=== PATIENT | female | born 1935 | race Caucasian/White ===

== ENCOUNTER 2017-03-28 06:19 | Observation (INO) | payer MEDICARE, BC ==
[2017-03-28 07:26] LABS: ALT (SGPT) 18 U/L (8-55); AST (SGOT) 14 U/L (5-34); Alkaline Phosphatase 78 U/L (40-150); Anion Gap 14 mmol/L (10-20); BUN (Urea Nitrogen) 10 mg/dL (9.8-20.1); Bilirubin, Total 0.6 mg/dL (0.2-1.2); CK (CPK) 66 U/L (29-168); Calc. Creatinine Clearance 0 mL/min (70-130); Carbon Dioxide 25 mmol/L (23-31); Chloride 107 mmol/L (98-107); Estimated GFR-MDRD 79; Globulin 3.3 g/dL (2.4-3.5); Protein, Total 6.9 g/dL (6.0-8.3)
[2017-03-28 07:28] LABS: Troponin I Less than 0.010 ng/mL (< 0.028)
--- NOTE | 2017-03-28 08:16 | RAD ---
SINGLE VIEW OF CHEST: Date: 03/28/17 COMPARISON: 05/01/16. HISTORY: Fall from 3-ft, landing on surface. Syncope. FINDINGS: Single view of the chest shows a normal sized cardiomediastinal silhouette. There is no evidence of consolidation, mass, or pleural effusion. The bones are unremarkable. IMPRESSION: No evidence of acute cardiopulmonary disease. POS: [facility]
--- NOTE | 2017-03-28 08:33 | CT ---
CT OF THE BRAIN WITHOUT CONTRAST: Date: 03/28/17 COMPARISON: 12/05/13. HISTORY: Fall from 3-ft. Syncope. TECHNIQUE: Multiple contiguous axial images were obtained in a CT of the brain without contrast. FINDINGS: There is no evidence of intracranial hemorrhage or extra-axial fluid collection. There is stable pro minence of the lateral ventricles. The calvarium and overlying soft tissues are unremarkable. The visualized paranasal sinuses and mast oid air cells are well aerated. IMPRESSION: 1. No evidence of acute intracranial abnormality. 2. Stable prominence of the lateral ventricles. This could be secondary to cerebral atrophy or norm al pressure hydrocephalus. POS: [facility]
[2017-03-28 08:36] LABS: Prothrombin Time 13.7 SEC (12.0-14.7)
[2017-03-28 08:37] LABS: PTT 28.2 SEC (22.9-36.1)
[2017-03-28 08:43] LABS: Band 6 % (5-11); Mean Platelet Volume 7.1 fL (7.4-10.4); Neutrophil 88 % (42-75); Red Blood Cell (RBC) Count 4.09 mill/uL (4.20-5.40); White Blood Cell (WBC) Count 21.4 thou/uL (4.8-10.8)
--- NOTE | 2017-03-28 08:56 | CT ---
CT OF THE CERVICAL SPINE WITHOUT CONTRAST: Date: 03/28/17 COMPARISON: None. HISTORY: Syncope. Fall from 3-ft. Head trauma and neck pain. TECHNIQUE: Multiple contiguous axial images were obtained in a CT of the cervical spine without contrast. Sagit stew and coronal reformats were performed. FINDINGS: The vertebral bodies and intervertebral discs demonstrate normal height and alignment without fractu re or subluxation. Mild degenerative change are seen. No prevertebral soft tissue swelling is presen t. The posterior facets are well aligned. Normal alignment of the skull base with the cervical spine is seen. IMPRESSION: Degenerative changes of the cervical spine without acute osseous abnormality. POS: [facility]
[2017-03-28] MEDS ORDERED: Sodium Chloride 0.9% 100 ML ONE ×2 (09:19→09:20)
[2017-03-28] MEDS ORDERED: cefTRIAXone\\ROCEPHIN 1 GM VIAL ONE (09:19)
[2017-03-28 09:22] LABS: Lactic Acid - Sepsis 1.6 mmol/L (0.5-2.2)
[2017-03-28 10:18] LABS: Bilirubin Negative (Negative); Blood, Urine Negative (Negative); Glucose, Urine (Dipstick) Negative (Negative); Ketone, Urine Trace mg/dL (Negative); Nitrite Negative (Negative); Protein, Urine (Dipstick) Trace mg/dL (Neg-Trace)
[2017-03-28 11:05] VITALS: BMI 22.6
--- NOTE | 2017-03-28 15:34 | HP ---
DATE OF ADMISSION: 03/28/2017 CHIEF COMPLAINT: Status post fall and possible near syncope versus syncope and head trauma, elevate d white cell count. HISTORY OF PRESENT ILLNESS: The patient is an 81-year-old female, a resident of [facility] from [place] where this morning, the patient was walking with her walker and apparently fell and the event was not witnessed directly, but apparently there was some staff member who was close by and she checked on her. She did not appear that consciousness was lost. At the time when she ch ecked in her, but apparently she fell and she struck her head, so in this situation, the patient was transferred to the emergency room for further evaluation. While in the emergency room in [facility], she was found to have elevated white count at 21,000 and her rectal temperature was elevated at 100.4 and decision was made about hospitalization for further management of her problem. The ray ramsey has significant very advanced dementia and she is not able to communicate with us in a meaning ful way, although she is able to follow my simple commands. PAST MEDICAL HISTORY: Positive for: 1. Dementia. 2. Hyperlipidemia. 3. Seasonal allergies. PAST SURGICAL HISTORY: 1. Right arm surgery. 2. Esophageal stricture status post dilatation x3. ALLERGIES: None. CURRENT MEDICATIONS: Aspirin 325 mg once a day, omeprazole 20 mg once a day, Zyrtec 10 mg once a da y, ipratropium bromide 0.2 mg per mL 2 times per day and 1 spray to each nostril, Lipitor 10 mg at b edtime, Aricept 10 mg once a day, Namenda XR 28 mg once a day, Singulair 10 mg at bedtime, risperido ne 0.5 mg at bedtime, mirtazapine 15 mg at bedtime. PHYSICAL EXAMINATION: HEAD: Normocephalic. I do not see any area which is post-trauma. I do not see any redness or swel ling on her scalp. EYES: Pupils are very narrow. This is most likely secondary to her antipsychotic medications use. Conjunctivae are pinkish. Sclerae nonicteric. MOUTH: Oral mucosa is moist. Her tongue is covered with some whitish discharge. NECK: Supple, no lymphadenopathy. LUNGS: Clear. HEART: S1, S2 normal. No S3, no S4, no murmur. ABDOMEN: Soft, nontender, nondistended, bowel sounds are present, no organomegaly. EXTREMITIES: No clubbing, cyanosis or edema. Pulses palpable on both tibialis posterior and dorsal is pedis arteries, similar bilaterally on both lower extremities. NEUROLOGIC: She follows my simple commands. She is able to move her four extremities. She does no t have any focal deficits. LABORATORY DATA AND X-RAY FINDINGS: Showed white count of 21.4, hemoglobin of 13.0, hematocrit 40, platelet count 281, 88% of neutrophils, PT of 13.7, INR 1.08, PTT 28.2. Chemistry panel within norm al limits. Lactic acid 1.6. Urinalysis, trace of ketones and 4.0; urobilinogen otherwise normal. Chest x-ray did not reveal any acute cardiopulmonary disease. This was personally reviewed by me. The CT of the brain was personally reviewed by me. It showed some enlarged lateral ventricles and t here was no any other evidence of acute intracranial abnormality. Also, she has a cervical CT, whic h showed degenerative changes without acute osseous abnormalities. EKG showed normal conduction pos sible junctional rhythm, short AL and normal T waves, normal axis, no deviation. IMPRESSION: 1. Status post fall. We do not know whether there was some very brief syncope, this was near synco pe, but the patient presented to the emergency room showed some elevated temperature rectally at 100 .4 and elevated white count of 21.4. We do not see any obvious source of infection at this point, w e know that she had lab work done in February and there was not any comments about elevated white c ount on her CBC. At this point, the patient is going to be admitted for observation and we will marie at her as possible infection of unknown source. 2. Advanced Alzheimer's dementia. 3. Hyperlipidemia. 4. History of esophageal stricture, status post dilatation x3. 5. History of seasonal allergies. PLAN: To admit her for observation. Condition is fair. Activity: Bed rest with a sitter, IV Hep- Lock, pureed low salt diet. Continue Rocephin. She received 1 dose, 1 gram of Rocephin in the [facility] room at 09:29. I will continue 1 g every 24 hours, IV piggyback of Rocephin. Also, she had b lood cultures and urine cultures done which should have some preliminary report by tomorrow. We randy l check her CBC and chemistry every morning. We will do echocardiogram and Doppler of the lower ext remities to rule out any DVTs, although there is no swelling which would indicate that is the case. Will continue her home meds. We will have her on 40 mg of Lovenox for DVT prophylaxis.
[2017-03-28] MEDS ORDERED: Ipratropium Bromide 0.03% Nasal Inhaler 30 ml Bottle EA NARE SCH ×2 (18:30→21:00)
--- NOTE | 2017-03-28 19:02 | ULT ---
ULTRASOUND WITH DOPPLER DUPLEX VENOUS LOWER EXTREMITIES BILATERAL: HISTORY: 81-year-old female with bilateral lower extremity swelling. TECHNIQUE: Color flow Doppler, spectral waveform analysis of pulsed Doppler, and friedman-scale imaging with compre ssion and augmentation, were used to evaluate the bilateral common femoral, femoral, popliteal, post erior tibial, and superficial femoral, veins; and the proximal portions of the profunda femoral and greater saphenous, veins. FINDINGS: There is normal compressibility, demonstration of blood flow by color Doppler and pulsed Doppler, an d response to augmentation, in all interrogated veins. There is mild soft tissue edema in the bilate ral lower extremities. IMPRESSION: 1. No deep vein thrombosis in the bilateral lower extremities. 2. Edema in the soft tissues of the bilateral lower extremities. mily POS: [facility]
[2017-03-28] MEDS: Ipratropium Bromide 0.03% Nasal Inhaler 30 ml Bottle EA NARE SCH ×2 (20:05→20:24)
[2017-03-28] MEDS ORDERED: Montelukast Sodium 10 mg Tablet PO SCH (21:00)
[2017-03-28] MEDS ORDERED: Mirtazapine 15 MG TAB PO SCH (21:00)
[2017-03-28] MEDS ORDERED: Non-Formulary Item 1 EACH (Risperidone [Risperdal] 0.5 MG) PO SCH (21:00)
[2017-03-28] MEDS ORDERED: FLU VACC TS2017-18 (>65YR) 0.5 ML SYRINGE IM ONE (21:00)
[2017-03-28] MEDS ORDERED: Donepezil HCl 10 MG TAB PO SCH (21:00)
[2017-03-28] MEDS ORDERED: Aspirin 325 MG TAB PO SCH (21:00)
[2017-03-28] MEDS ORDERED: Atorvastatin Calcium 10 MG TAB PO SCH (21:00)
[2017-03-28] MEDS ORDERED: risperiDONE 0.25 MG TAB PO SCH (21:00)
[2017-03-28] MEDS ORDERED: Non-Formulary Item 1 EACH (Memantine Hcl [Namenda Xr] 28 MG) PO SCH (21:00)
--- NOTE | 2017-03-28 23:23 | ADD-HP ---
ADDENDUM: SOCIAL HISTORY: The patient does not drink alcohol. She does not use any illicit drugs. She does not smoke. She has no history of cigarette smoking. FAMILY HISTORY: Father is unknown. Mother was in 94 when she passed with multiple medical problems , but unknown. REVIEW OF SYSTEMS: Constitutional: Negative for fever and chills. Eyes: Negative for eye pain an d eye discharge. ENT: Negative for nasal congestion and epistaxis. Cardiovascular: Negative for chest pain and palpitations. Respiratory: Negative for shortness of breath and cough. Gastrointes tinal: Negative for nausea and vomiting. Genitourinary: Negative for hematuria and dysuria. Neur ologic: Negative for headache and dizziness. Dermatologic: Negative for any erythema or rash. Ps ychiatric: Negative for suicidal or homicidal ideation. The whole review of systems she has done w ith her spouse. Mr. Felipe Amanda is power of car repairer for Ms. Amanda, and primary care physician is Dr. Sigrid Lee.
[2017-03-29 05:04] LABS: Anion Gap 10 mmol/L (10-20); BUN (Urea Nitrogen) 12 mg/dL (9.8-20.1); Calc. Creatinine Clearance 65 mL/min (70-130); Calcium 8.2 mg/dL (7.8-10.44); Carbon Dioxide 23 mmol/L (23-31); Chloride 108 mmol/L (98-107); Estimated GFR-MDRD Greater than 90
[2017-03-29 05:07] LABS: #Eosinphils 0.2 thou/uL (0.0-0.7); #Lymphocytes 2.3 thou/uL (1.20-3.40); #Monocytes 0.6 thou/uL (0.11-0.59); #Neutrophils 7.3 thou/uL (1.40-6.50); %Basophils 0.4 % (0.0-1.0); %Eosinophils 2.1 % (0.0-10.0); %Lymphocytes 21.6 % (21.0-51.0); %Monocytes 5.8 % (0.0-10.0); Hematocrit 35.6 % (36.0-47.0); Mean Platelet Volume 7.8 fL (7.4-10.4); Red Blood Cell (RBC) Count 3.54 mill/uL (4.20-5.40); White Blood Cell (WBC) Count 10.4 thou/uL (4.8-10.8)
[2017-03-29] MEDS ORDERED: Ipratropium Bromide 0.03% Nasal Inhaler 30 ml Bottle EA NARE SCH (09:00)
[2017-03-29] MEDS ORDERED: Non-Formulary Item 1 EACH (Omeprazole [Omeprazole] 20 MG) PO SCH (09:00)
[2017-03-29] MEDS ORDERED: Cetirizine HCl 10 MG TAB PO SCH (09:00)
[2017-03-29] MEDS ORDERED: Loratadine 10 MG TAB PO SCH (09:00)
[2017-03-29] MEDS: Enoxaparin Sodium 40 MG/0.4 ML SYRINGE SC SCH ×2 (09:07→09:10)
[2017-03-29] MEDS: cefTRIAXone\\ROCEPHIN 1 GM in Sodium Chloride 0.9% 100 ML IVPB SCH ×2 (09:07→11:10)
[2017-03-29 11:41] VITALS: BP 155/62; TEMP 97.5
[2017-03-29] MEDS ORDERED: cefTRIAXone\\ROCEPHIN 1 GM in Sodium Chloride 0.9% 100 ML IVPB SCH (12:15)
--- NOTE | 2017-03-29 17:32 | DIS ---
DATE OF ADMISSION: 03/28/2017 DATE OF DISCHARGE: 03/29/2017 DISCHARGE DIAGNOSES: 1. Status post fall, likely mechanical. 2. Skull contusion. 3. Leukocytosis without infectious etiology identified. 4. Advanced dementia, likely Alzheimer's type. CONSULTATIONS: None. PERTINENT LABORATORY DATA AND X-RAY FINDINGS: Complete metabolic profile within normal limits. CRP 3.3, lactic acid level 1.6. CBC showed a white blood cell count ranging between 10.4-21.4, hemoglo bin ranged between 11.7-13. Blood cultures x2 dated 03/28/2017 showed no growth to date. CT of the brain without contrast dated 03/28/2017 showed no acute intracranial process. Generalized cerebral atrophy noted with prominent ventricles. CT of the cervical spine dated 03/28/2017 showed degenera tive changes without acute process. Portable chest x-ray dated 03/28/2017 showed no acute cardiopul monary process. Bilateral lower extremity venous Doppler study dated 03/28/2017 showed no evidence for DVT. 2D transthoracic echocardiogram pending at the time of this dictation. HOSPITAL COURSE: Patient was observed after initially presenting status post mechanical fall with h ead contusion. The patient underwent general evaluation including multiple imaging modalities as st ated previously, all negative. The patient was noted with mild contusion on the occipital region wi thout evidence for open laceration. The patient was noted on metabolic screening with leukocytosis and initial concern for possible infectious process. The patient received IV Rocephin, pending cult ure results. Blood cultures x2 were negative as stated previously and patient's leukocytosis had re solved prior to discharge. Overall, the patient remained clinically stable throughout the remainder of the hospital course, tolerating regular oral intake, ambulating with rolling walker and overall remaining clinically stable. The patient is ready for discharge on 03/29/2017. DISCHARGE MEDICATIONS: 1. Aspirin 325 mg 1 tab p.o. at bedtime. 2. Lipitor 10 mg p.o. at bedtime. 3. Zyrtec 10 mg p.o. daily. 4. Aricept 10 mg p.o. at bedtime. 5. Ipratropium bromide 1 spray in each naris daily. 6. Namenda XR 28 mg p.o. at bedtime. 7. Mirtazapine 15 mg p.o. at bedtime. 8. Singulair 10 mg p.o. at bedtime. 9. Omeprazole 20 mg p.o. daily. 10. Risperdal 0.5 mg p.o. at bedtime. FOLLOWUP: Patient will follow up with her primary care provider, Dr. Sigrid Lee, within 7 days. CONDITION ON DISCHARGE: Stable. ACTIVITY: Ad flaco. Rolling walker for ambulation. DIET: Regular. CODE STATUS: DO NOT RESUSCITATE. DISPOSITION: Discharge to [facility], 03/29/2017.
== END 2017-03-29 12:45 ==
LOC: SCSER 06:19 → 2SE 10:54 → INTOOBSV 10:54
PROVIDERS: ADMIT Internal Medicine; ATTEND Internal Medicine
DX: S00.83XA Contusion of other part of head, initial encounter (principal); D72.829 Elevated white blood cell count, unspecified; E78.5 Hyperlipidemia, unspecified; J30.2 Other seasonal allergic rhinitis; G30.9 Alzheimer's disease, unspecified; F02.80 Dementia in other diseases classified elsewhere, unspecified severity, without behavioral disturbance, psychotic disturbance, mood disturbance, and anxiety; R60.0 Localized edema; M54.2 Cervicalgia; W19.XXXA Unspecified fall, initial encounter; Y93.01 Activity, walking, marching and hiking; Z66 Do not resuscitate; Z79.82 Long term (current) use of aspirin; Z79.899 Other long term (current) drug therapy; Z88.0 Allergy status to penicillin; Z98.890 Other specified postprocedural states
CPT/HCPCS: 51701; 70450; 71010; 72125; 80048; 80053; 81003; 82550; 82553; 83605; 84484; 85025 ×2; 85610; 85730; 86140; 87040; 87086; 93005; 93306; 93970; 96365; 99285; G0378; 36415; A4216; A4353; J0696; J1650; J7050

== ENCOUNTER 2017-07-21 15:45 | Day surgery (SDC) | payer MEDICARE, BC ==
[~2017-07-21 15:45] MED LIST: Lidocaine 1% PF 5 ML VIAL ONE; Ondansetron HCl/PF 4 MG/2 ML Vial ONE; Propofol 200 MG/20 ML VIAL ONE; Succinylcholine Chloride 20 MG/ML 10 ml SYRINGE FS ONE
[2017-07-21] MEDS ORDERED: Diprivan 0 ML ONE (17:42)
[2017-07-21] MEDS ORDERED: Fentanyl 100 MCG/2 ML VIAL ONE (17:51)
--- NOTE | 2017-07-21 20:44 | OP ---
PREOPERATIVE DIAGNOSIS: Acute dysphagia. PROCEDURE: After informed consent was obtained, the patient was placed in the left lateral decubitus position. Anesthesia was administered per the Anesthesia Department. Forward-viewing endoscope was inserted into the esophagus under direct visualization with ease and passed to the GE junction. The re are esophageal foreign body was noted, looked to be as a meat impaction. It was snared and migdalia t out of the mouth. The scope was reinserted and showed an esophageal stricture at the GE junction. A hiatal hernia was noted as well. The remainder of the stomach and duodenum were normal. A 54-Edward nch Paredes dilator was passed with some moderate resistance. Reinsertion of the endoscope showed so me post-dilatation bleeding. ASSESSMENT: 1. Esophageal foreign body -- status post extraction. 2. Esophageal stricture -- status post dilatation. 3. Otherwise normal esophagogastroduodenoscopy. RECOMMENDATIONS: Pureed diet.
--- NOTE | 2017-07-21 20:55 | CON ---
DATE OF CONSULTATION: 07/21/2017 HISTORY OF PRESENT ILLNESS: Patient is an 81-year-old female who was fine up until 11:00 t shona when she developed acute swallowing problems. She has been spitting up saliva ever since. She has a history of esophageal stricture and last underwent an EGD and dilatation on 01/21/2017. This s howed esophageal stricture and was dilated with a 54-Welsh Paredes dilator. At that time, she was p laced on a pureed diet; however, patient occasionally takes something off other patients' trays. PAST MEDICAL HISTORY: Includes senile dementia, anxiety, arthritis, hypercholesterolemia. PAST SURGICAL HISTORY: Includes cataracts and colonoscopy. ALLERGIES: No known allergies. SOCIAL HISTORY: She is a [facility] resident. FAMILY HISTORY: Negative for GI or liver disease. REVIEW OF SYSTEMS: Unobtainable. MEDICATIONS: Omeprazole 20 mg p.o. q. day, aspirin 325 mg 1 p.o. q. day, Lipitor 10 mg p.o. q. day, Aricept 10 mg p.o. q. day, Namenda 28 mg p.o. q. day, Seroquel 50 mg p.o. q. day. PHYSICAL EXAMINATION: GENERAL: Shows an elderly demented female in no acute distress. VITAL SIGNS: Stable. She is afebrile. HEENT: Unremarkable. NECK: Supple. CHEST: Clear. CARDIOVASCULAR: Regular rate and rhythm. ABDOMEN: Soft, nontender, without organomegaly or masses. Bowel sounds are present and normoactive. RECTAL: Deferred. EXTREMITIES: Normal. NEUROLOGIC: Nonfocal. ASSESSMENT: 1. Acute esophageal foreign body obstruction. 2. History of esophageal stricture. 3. Dementia. RECOMMENDATIONS: Urgent EGD.
== END 2017-07-21 19:35 | disposition home or self-care (01) ==
LOC: ERS 15:45 → SDC 17:33
PROVIDERS: ATTEND Internal Medicine Gastroenterology
PROC: 0DC58ZZ Extirpation of Matter from Esophagus, Via Natural or Artificial Opening Endoscopic (ICD-10-PCS; principal; 2017-07-21)
PROC: 0D758ZZ Dilation of Esophagus, Via Natural or Artificial Opening Endoscopic (ICD-10-PCS; 2017-07-21)
DX: T18.128A Food in esophagus causing other injury, initial encounter (principal); K22.2 Esophageal obstruction; F03.90 Unspecified dementia, unspecified severity, without behavioral disturbance, psychotic disturbance, mood disturbance, and anxiety; F41.9 Anxiety disorder, unspecified; M19.90 Unspecified osteoarthritis, unspecified site; Z88.0 Allergy status to penicillin; Z98.890 Other specified postprocedural states
CPT/HCPCS: 99285; J2001; J2405; J2704; J3010

== ENCOUNTER 2017-10-14 13:18 | Outpatient (CLI) | payer MEDICARE, BC ==
--- NOTE | 2017-10-14 15:04 | MRI ---
BRAIN MRI WITHOUT CONTRAST: HISTORY: Alzheimer's disease. COMPARISON: None. TECHNIQUE: Brain MRI is performed without intravenous Gadolinium administration. Multisequential, multiplanar i maging is performed. FINDINGS: Limited evaluation due to motion degradation. No obvious hemorrhage on the axial gradient echo seque nce. Calvarium has a normal marrow signal intensity. Midline brain parenchymal structures are unremarkabl e. Dilatation of the ventricular system, greater than expected for degree of atrophy. Minimal white mat ter hyperintensities due to chronic small-vessel ischemic changes are noted. No parenchymal mass, mass effect, or midline shift. IMPRESSION: Prominence of the ventricular system, greater than expected for the overall degree of atrophy. Corre late for normal-pressure hydrocephalus. POS: [facility]
== END 2017-10-14 13:19 | disposition home or self-care (01) ==
LOC: SCSMRI 13:18
PROVIDERS: ATTEND Psychiatry & Neurology Neurology
DX: G30.1 Alzheimer's disease with late onset (principal)
CPT/HCPCS: 70551

== ENCOUNTER 2018-01-01 06:29 | Observation (INO) | payer MEDICARE, BC ==
[2018-01-01 07:04] LABS: #Basophils 0.1 thou/uL (0.0-0.2); #Eosinphils 0.2 thou/uL (0.0-0.7); #Lymphocytes 1.4 thou/uL (1.20-3.40); #Monocytes 0.8 thou/uL (0.11-0.59); %Basophils 0.4 % (0.0-1.0); %Eosinophils 1.2 % (0.0-10.0); %Monocytes 4.4 % (0.0-10.0); Hemoglobin 13.9 g/dL (12.0-16.0); Mean Corpuscular HGB CONC 35.1 g/dL (32.0-36.0); Mean Corpuscular Hemoglobin 32.1 pg (27.0-31.0); Mean Corpuscular Volume 91.3 fL (78.0-98.0); Platelet Count 294 thou/uL (130-400); RBC Distribution Width 11.2 % (11.5-14.5); Red Blood Cell (RBC) Count 4.33 mill/uL (4.20-5.40); White Blood Cell (WBC) Count 17.5 thou/uL (4.8-10.8)
[2018-01-01 07:12] LABS: PTT 30.2 SEC (22.9-36.1); Prothrombin Time 13.1 SEC (12.0-14.7)
[2018-01-01 07:21] LABS: ALT (SGPT) 15 U/L (8-55); AST (SGOT) 14 U/L (5-34); Albumin 3.8 g/dL (3.4-4.8); Alkaline Phosphatase 73 U/L (40-150); Anion Gap 13 mmol/L (10-20); BUN (Urea Nitrogen) 20 mg/dL (9.8-20.1); Bilirubin, Total 0.4 mg/dL (0.2-1.2); Calc. Creatinine Clearance 0 mL/min (70-130); Calcium 9.1 mg/dL (7.8-10.44); Carbon Dioxide 24 mmol/L (23-31); Chloride 107 mmol/L (98-107); Estimated GFR-MDRD 87; Globulin 3.3 g/dL (2.4-3.5); Glucose 91 mg/dL (83-110); Protein, Total 7.1 g/dL (6.0-8.3); Sodium 140 mmol/L (136-145)
--- NOTE | 2018-01-01 07:51 | CT ---
CT OF BRAIN WITHOUT CONTRAST: INDICATION: Level II trauma. Fall at home with laceration to the head. Unknown down time. COMPARISON: Prior exam dated 07/29/16. FINDINGS: There is a laceration and contusion involving the central aspect of the frontal scalp. No radiopaque foreign body is evident. No displaced or depressed skull fracture is evident. There is generalized cerebral and cerebellar atrophy which is largely stable. The septum pellucidum and third ventricle are midline. IMPRESSION: 1. No acute intracranial abnormality. 2. Mild generalized cerebral and cerebellar atrophy. 3. Frontal scalp laceration and contusion. POS: [facility]
--- NOTE | 2018-01-01 07:52 | CT ---
CT OF THE CERVICAL SPINE WITHOUT CONTRAST: INDICATION: History of fall at home with neck pain. COMPARISON: Prior study dated 03/28/17. FINDINGS: Neural foramina or subluxation is evident. There is mild multilevel spondylosis of the cervical spin e. Craniocervical junction appears within normal limits. Visualized posterior fossa and prevertebra l soft tissues appear within normal limits. Lung apices are clear. IMPRESSION: No acute osseous abnormality. POS: [facility]
[2018-01-01 07:59] LABS: Bilirubin Negative (Negative); Blood, Urine Negative (Negative); Clarity Cloudy (Clear); Glucose, Urine (Dipstick) Negative (Negative); Leukocyte Trace (Negative); Nitrite Negative (Negative); Protein, Urine (Dipstick) Negative (Neg-Trace); Specific Gravity, Urine 1.015 (1.005-1.030); Urobilinogen 0.2 mg/dL (0.2-1.0); pH, Urine 8.5 (5.0-9.0)
[2018-01-01] MEDS ORDERED: Adacel (T-DAP) 0.5 ML VIAL ONE (07:59)
[2018-01-01] MEDS ORDERED: Bacitracin Zinc 1 Packet ONE (07:59)
[2018-01-01 08:06] LABS: Crystals/HPF 2+ AMORPH PHOS HPF (Negative); Hyaline Casts/LPF NONE SEEN LPF (0-3 Hyaline); RBC/HPF None Seen HPF (0-3); Squamous Epithelial 0-3 HPF (0-3); WBC/HPF 0-3 HPF (0-3)
[2018-01-01 08:07] LABS: Bacteria/HPF Rare-Few HPF (None Seen)
--- NOTE | 2018-01-01 08:07 | CT ---
CT OF THE CHEST AND ABDOMEN AND PELVIS: INDICATION: History of fall with dementia. COMPARISON: None. FINDINGS: No contusion, pleural effusion, or pneumothorax is evident. Heart and great vessels reveal no acute injury. There is moderate hiatal hernia. There is a 1.6 cm cyst within the caudate lobe. The pancreas, adrenal glands, and spleen are unremarkable. The kidneys appear within normal limits. There is a moderate amount of retained stool within the colon. No free fluid or free air is grossly evident. There is an age-indeterminate moderate wedge compression abnormality of T12. There is sclerosis of p ortions of the central aspect of the T12 vertebral body raising suspicion that this may be a subacute or chronic fracture. No definite additional acute injury is evident. IMPRESSION: 1. No definite acute traumatic injury involving the chest, abdomen, and pelvis. 2. Age-indeterminate T12 wedge compression fracture. 3. Moderate hiatal hernia. 4. Hepatic cyst. 5. A moderate amount of retained stool within the colon. 6. Findings from CT of the head, C-spine, chest, abdomen, and pelvis were called to Dr. Villaseñor at 7:38 a.m. on 01/01/18. CODE CR POS: [facility]
--- NOTE | 2018-01-01 09:15 | RAD ---
TWO VIEWS OF THE RIGHT HUMERUS: INDICATION: History of fall. COMPARISON: Prior exam dated 12/08/13. FINDINGS: There has been interval healing of the previously seen greater tuberosity fracture. No acute fractur e or subluxation is grossly evident. There is a suggestion of some narrowing of the acromioclavicula r interval which may reflect rotator cuff insufficiency. There is an IV cannula within the region of the antecubital fossa. IMPRESSION: 1. No acute osseous abnormality. 2. Chronic findings as above. POS: [facility]
--- NOTE | 2018-01-01 09:22 | RAD ---
TWO VIEWS OF THE RIGHT FOREARM: INDICATION: Fall with right arm pain. COMPARISON: None. FINDINGS: No acute fracture or subluxation is evident. There is enthesopathic change of the radial styloid. S oft tissues appear within normal limits. IMPRESSION: No acute osseous abnormality. POS: [facility]
[2018-01-01 12:07] VITALS: BMI 21.7
[2018-01-01] MEDS ORDERED: Iopamidol 370 76% 100 ML VIAL ONE (14:48)
[2018-01-01] MEDS: 1/2 NS w/KCL 20 mEq 1,000 ML IV SCH (15:36)
[2018-01-01 18:15] LABS: CKMB 4.6 ng/mL (0-6.6); Troponin I Less than 0.010 ng/mL (< 0.028)
--- NOTE | 2018-01-01 18:31 | HP ---
HISTORY OF PRESENT ILLNESS: An 82-year-old female who lives at the [facility] in [facility] locally who was found approximately at 5:00 a.m. on the floor. She had an unwitn essed fall. We do not know whether she lost consciousness. She had head trauma. She was taken to [facility] emergency room and was found to be hypothermic and decision was made about admission to the hospit al. At the time of presentation at the emergency room, her was at 12. Normally, she is able to move around with a walker and she had similar admission for similar problem in 03/2017. The patient is a DNR and she is admitted for further management of her problem. PAST MEDICAL HISTORY: Positive for: 1. Dementia. 2. Hyperlipidemia. 3. Seasonal allergies. PAST SURGICAL HISTORY: Right arm surgery and esophageal stricture, status post dilatation. ALLERGIES: None. CURRENT MEDICATIONS: Aspirin 325 mg once a day, omeprazole 20 mg once a day, ipratropium bromide inh alation twice a day, Zyrtec 10 mg once a day, montelukast 10 mg once a day, vitamin C 500 mg once a d ay, vitamin D3 of 2000 units once a day, triamcinolone acetonide ointment unclear frequency and purpo se, lorazepam 0.5 mg 1 tablet at bedtime, mirtazapine 15 mg, unclear frequency and melatonin 3 mg 1-3 tablets at bedtime. REVIEW OF SYSTEMS: Obviously unobtainable from the patient from her present during my evalua tion. We went over ten systems and she did not complain about any problems to him. PHYSICAL EXAMINATION: VITAL SIGNS: Blood pressure is 143/81, pulse is 67, temperature is 97.4, O2 saturation is 100% on ro om air, respirations 18. HEENT: Posttraumatic. She has an open laceration on her forehead which is not bleeding and covered with a Band-Aid. Her eyes PERRLA. Sclerae nonicteric. Oral mucosa is moist. NECK: Supple after the collar was taking off from her neck. LUNGS: Breath sounds diminished at both bases. HEART: S1, S2 normal, no S3, no S4. ABDOMEN: Soft, nontender, nondistended. EXTREMITIES: No clubbing, cyanosis or edema. SKIN: She has multiple bruises all over her body, usually small ones. NEUROLOGIC: She is following my commands. She is able to move her all 4 extremities. There are not any focal deficits. LABORATORY AND X-RAY FINDINGS: White count of 17.5, hemoglobin 13.9, hematocrit 39.6, platelet count is 294. Normal chemistry. INR 1.0, PT 13.1, APTT 30.2. Urinalysis showed just trace of leukocyte esterase, otherwise within normal limits. She had multiple x-rays cervical spine, CT of forearm, x-r ay and humerus x-ray, all of them did not show any fractures. CT of the abdomen and pelvis and chest , posttraumatic showed no definite acute traumatic injury involving the chest, abdomen, and pelvis al teresa with age indeterminate T12 wedge compression fracture and moderate hiatal hernia. Also, she unde rwent brain CT which showed mild generalized cerebral and cerebellar atrophy and frontal scalp lacera tion and contusion. ASSESSMENT AND PLAN: 1. Unwitnessed fall. It is unclear whether there was loss of consciousness. This is unclear etiolo gy, most likely she just fell after she tripped, lost the balance and she uses the walker and when william farris was brought to the emergency room, she was found to be hypothermic and temperature was 96.4 rectall y. She is admitted to rule out possible sepsis since her white count is up to 17,000, but she does n ot have any other symptoms, no sepsis at this point. The blood cultures were done at the emergency r oom, but I do not feel like she needs to be on any antibiotic at this point since the diagnosis of se psis is unlikely. 2. Advanced Alzheimer dementia. 3. Hyperlipidemia. 4. History of esophageal stricture, status post dilatation x3. PLAN: Admission for observation. Condition is fair. Activity: Bed rest and bathroom privileges wi th assistance. IV 75 mL of half normal saline with 20 mEq of KCl. Cardiac enzymes q.4 hours x2. We will take the list of her medications from assisted living and review what needs to be stopped to de crease the risk of falls. It looks like I have to stop her olanzapine and benzodiazepine. We will g et physical therapy to work with her.
[2018-01-01] MEDS: Mirtazapine 15 MG TAB PO SCH (20:15)
[2018-01-01] MEDS: Aspirin 325 MG TAB PO SCH (20:15)
[2018-01-01] MEDS: Montelukast Sodium 10 mg Tablet PO SCH (20:15)
[2018-01-01] MEDS: Ipratropium Bromide 0.03% Nasal Inhaler 30 ml Bottle EA NARE SCH (20:22)
[2018-01-01] MEDS: Melatonin 3 MG TAB PO SCH (20:22)
[2018-01-01 21:57] LABS: CKMB 4.9 ng/mL (0-6.6); Troponin I Less than 0.010 ng/mL (< 0.028)
[2018-01-02] MEDS: 1/2 NS w/KCL 20 mEq 1,000 ML IV SCH ×2 (03:35→17:58)
[2018-01-02 05:41] LABS: Anion Gap 11 mmol/L (10-20); BUN (Urea Nitrogen) 10 mg/dL (9.8-20.1); Calc. Creatinine Clearance 62 mL/min (70-130); Calcium 8.4 mg/dL (7.8-10.44); Carbon Dioxide 20 mmol/L (23-31); Chloride 110 mmol/L (98-107); Estimated GFR-MDRD Greater than 90; Glucose 77 mg/dL (83-110); Potassium 4.4 mmol/L (3.5-5.1); Sodium 137 mmol/L (136-145)
[2018-01-02 07:03] LABS: #Eosinphils 0.4 thou/uL (0.0-0.7); #Lymphocytes 1.4 thou/uL (1.20-3.40); #Monocytes 0.5 thou/uL (0.11-0.59); #Neutrophils 4.9 thou/uL (1.40-6.50); %Basophils 0.5 % (0.0-1.0); %Eosinophils 5.7 % (0.0-10.0); %Lymphocytes 19.4 % (21.0-51.0); %Monocytes 6.6 % (0.0-10.0); %Neutrophils 67.9 % (42.0-75.0); Hemoglobin 13.1 g/dL (12.0-16.0); Mean Corpuscular HGB CONC 32.6 g/dL (32.0-36.0); Mean Corpuscular Hemoglobin 31.8 pg (27.0-31.0); Mean Corpuscular Volume 97.5 fL (78.0-98.0); Mean Platelet Volume 8.7 fL (7.4-10.4); Platelet Count 272 thou/uL (130-400); RBC Distribution Width 11.8 % (11.5-14.5); White Blood Cell (WBC) Count 7.2 thou/uL (4.8-10.8)
[2018-01-02] MEDS: Ipratropium Bromide 0.03% Nasal Inhaler 30 ml Bottle EA NARE SCH ×2 (08:45→20:09)
[2018-01-02] MEDS: Loratadine 10 MG TAB PO SCH (08:46)
--- NOTE | 2018-01-02 14:28 | PRG ---
DATE OF SERVICE: 01/02/2018 SUBJECTIVE: The patient is seen and examined at the bedside. She is doing significantly better. Monica farris is hungry. OBJECTIVE: VITAL SIGNS: Blood pressure is 127/72, pulse is 70, temperature is 97.5, respiratory rate is 16, and O2 saturations are 100% on room air. His forehead is covered with a Band-Aid. Laceration is dresse d. HEENT: Pupils are responding to light properly. Sclerae is nonicteric. Oral mucosa is moist. NECK: Supple. LUNGS: Clear. HEART: S1, S2, somewhat irregular. No S3, no S4. ABDOMEN: Soft, nontender. EXTREMITIES: No clubbing, cyanosis, or edema. She is elderly lady with some dementia, but she tries to follow my commands and she is able to move her all 4 extremities. LABORATORY DATA: Showed white count of 7.2, hemoglobin of 13.1, hematocrit 40.0, platelet count is 2 72,000. Chemistry showed sodium of 137, potassium 4.4, chloride 110, CO2 20, BUN 10, creatinine 0.61 , calcium 8.4. Two additional sets of CK-MB and troponin I came back within normal limits. IMPRESSION: 1. Unwitnessed fall and unclear whether she lost of consciousness, whether she had syncope. She is clinically doing better. Her orthostatic changes were within normal limits. Her white count is down to normal range, so she did not have any sepsis. 2. Advanced Alzheimer dementia. 3. Hyperlipidemia. 4. History of esophageal stricture, status post dilatation x3. PLAN: Continue her recovery from the fall. We will get PT and will stop her IV fluids. She is rehy drated. This does not look like, but she had some kind of coronary event. Her troponins were within normal limits. Most likely, she would benefit from some form of closer supervision at the nursing [facility] and she should be able to go back to the longterm tomorrow.
[2018-01-02] MEDS: Mirtazapine 15 MG TAB PO SCH (20:09)
[2018-01-02] MEDS: Aspirin 325 MG TAB PO SCH (20:09)
[2018-01-02] MEDS: Melatonin 3 MG TAB PO SCH (20:09)
[2018-01-02] MEDS: Montelukast Sodium 10 mg Tablet PO SCH (20:09)
[2018-01-03 08:28] VITALS: TEMP 98.2
[2018-01-03] MEDS: Loratadine 10 MG TAB PO SCH (08:43)
[2018-01-03] MEDS ORDERED: Pantoprazole 40 MG GRANULES PACKET PO SCH (09:00)
[2018-01-03] MEDS: Ipratropium Bromide 0.03% Nasal Inhaler 30 ml Bottle EA NARE SCH (13:16)
[2018-01-03 14:50] VITALS: BP 158/66
--- NOTE | 2018-01-03 15:15 | DIS ---
DATE OF ADMISSION: 01/01/2018 DATE OF DISCHARGE: 01/03/2018 PRIMARY CARE PROVIDER: Sigrid Lee MD DISCHARGE DISPOSITION: Discharged back to [facility] facility in [place]. FINAL DIAGNOSES: Alzheimer's disease; fall; leukocytosis, resolved. MEDICATIONS: Lorazepam 0.5 mg at bedtime, Zyprexa 5 mg at bedtime, melatonin, paroxetine 1 tablet at bedtime, aspirin 325 mg a day, mirtazapine 15 mg at bedtime, omeprazole 20 mg a day, Singulair 10 mg a day. ALLERGIES: No known drug allergies. DIET: As tolerated. CODE STATUS: DO NOT RESUSCITATE. HOSPITAL COURSE: Patient found down in the assisted and was brought here for evaluation. She drake s Alzheimer's disease. A large workup was done. Initial laboratory, UA is clear. Chemistries: Com p metabolic profile normal. CBC showed elevated white count on the day of admission 17.5 and 24 hour s later it is 7.2; hemoglobin stable 13.[address] scan of the brain revealed no abnormalities. Cervical spine revealed no acute fractures. CT of the abdomen and pelvis showed no acute abnormalit y. Humerus and forearm x-ray on the right side revealed no fracture. She does have some skin avulsi on on that side, which is wrapped on evaluation today. I met with her and her . She is alert , oriented. He states that she is back to normal. He is ready to take her back to the [facility], as she thinks she will do better there. Vital signs are stable. She has a bandaged right arm. Cardio vascular exam was normal. She is being discharged back to [facility] for followup with Dr. Lee in 1 week. No consultations. No procedures.
== END 2018-01-03 15:37 ==
LOC: SCSER 06:29 → T4-A 08:31
PROVIDERS: ADMIT Internal Medicine; ATTEND Internal Medicine
DX: G30.9 Alzheimer's disease, unspecified (principal); D72.829 Elevated white blood cell count, unspecified; E78.5 Hyperlipidemia, unspecified; Z79.82 Long term (current) use of aspirin; Z79.899 Other long term (current) drug therapy; Z87.19 Personal history of other diseases of the digestive system
CPT/HCPCS: 51701; 70450; 71260; 72125; 73060; 73090; 74177; 80048; 80053; 82553 ×2; 83605; 84484 ×2; 85025 ×2; 85610; 85730; 86850; 86900; 86901; 87040; 87077; 87086; 90471; 90715; 96360; 96361 ×2; 97116; 97139 ×3; 97530; 99285; G0378 ×2; G8978; G8979; G8980; 36415; 81003; 81015; A4353; G8996-GN-CK; G8997-GN-CK

== ENCOUNTER 2018-01-28 19:04 | Day surgery (SDC) | payer MEDICARE, BC ==
[~2018-01-28 19:04] MED LIST changes: -Ondansetron HCl/PF 4 MG/2 ML Vial ONE; +PROPOFOL 200 MG/20 ML VIAL ONE; -Propofol 200 MG/20 ML VIAL ONE
[2018-01-28 20:03] LABS: #Eosinphils 0.2 thou/uL (0.0-0.7); #Lymphocytes 1.4 thou/uL (1.20-3.40); #Monocytes 0.6 thou/uL (0.11-0.59); #Neutrophils 7.4 thou/uL (1.40-6.50); %Basophils 0.5 % (0.0-1.0); %Eosinophils 2.4 % (0.0-10.0); %Lymphocytes 14.1 % (21.0-51.0); %Monocytes 6.6 % (0.0-10.0); %Neutrophils 76.5 % (42.0-75.0); Hemoglobin 12.8 g/dL (12.0-16.0); Mean Corpuscular HGB CONC 34.7 g/dL (32.0-36.0); Mean Corpuscular Hemoglobin 33.5 pg (27.0-31.0); Mean Corpuscular Volume 96.5 fL (78.0-98.0); Mean Platelet Volume 7.7 fL (7.4-10.4); Platelet Count 309 thou/uL (130-400); RBC Distribution Width 11.7 % (11.5-14.5); Red Blood Cell (RBC) Count 3.83 mill/uL (4.20-5.40); White Blood Cell (WBC) Count 9.7 thou/uL (4.8-10.8)
[2018-01-28 20:29] LABS: ALT (SGPT) 14 U/L (8-55); AST (SGOT) 13 U/L (5-34); Albumin 3.8 g/dL (3.4-4.8); Alkaline Phosphatase 86 U/L (40-150); Anion Gap 12 mmol/L (10-20); BUN (Urea Nitrogen) 29 mg/dL (9.8-20.1); Bilirubin, Total 0.2 mg/dL (0.2-1.2); Calc. Creatinine Clearance 0 mL/min (70-130); Calcium 9.1 mg/dL (7.8-10.44); Carbon Dioxide 22 mmol/L (23-31); Chloride 107 mmol/L (98-107); Estimated GFR-MDRD 68; Globulin 3.3 g/dL (2.4-3.5); Glucose 127 mg/dL (83-110); Potassium 4.5 mmol/L (3.5-5.1); Protein, Total 7.1 g/dL (6.0-8.3); Sodium 136 mmol/L (136-145)
[2018-01-28] MEDS ORDERED: Fentanyl 100 MCG/2 ML VIAL ONE (23:03)
--- NOTE | 2018-01-28 23:18 | CON ---
DATE OF CONSULTATION: 01/28/2018 CHIEF COMPLAINT: Cannot swallow. HISTORY OF PRESENT ILLNESS: Ms. Amanda is an 82-year-old woman with advanced dementia and history of esophageal stricture with recurrent food bolus impactions, who had a food bolus impaction again today around 4:30 p.m. Her states that she is in an Alzheimer's unit and they only have pureed fo ods and supplements available; however, she may have eaten someone else's solid food. She just had E GD with dilation by Dr. Woods a couple of months ago. She had a foreign body back in July and Dr. Woods dilated her esophagus at that time as well. PAST MEDICAL HISTORY: Advanced dementia, hyperlipidemia. PAST SURGICAL HISTORY: Dilation of esophageal stricture, arm surgery. FAMILY HISTORY: Noncontributory. SOCIAL HISTORY: No alcohol, tobacco, or drugs. She is a resident of an Alzheimer's unit nursing [facility]. ALLERGIES: No known drug allergies. MEDICATIONS: At the time of discharge from the hospital in 12/2017 was lorazepam, Zyprexa, melatonin , paroxetine, aspirin, mirtazapine, omeprazole, and Singulair. REVIEW OF SYSTEMS: Unobtainable as the patient does not converse coherently. PHYSICAL EXAMINATION: GENERAL: She is in no acute distress. She is spitting her saliva into a bag at the bedside. LUNGS: Clear to auscultation bilaterally. HEART: Regular rate and rhythm. ABDOMEN: Soft, nontender, nondistended. Bowel sounds are present. EXTREMITIES: No lower extremity edema. IMPRESSION: Esophageal foreign body. PLAN: EGD this evening with removal of the foreign body.
[2018-01-29] MEDS ORDERED: Bacitracin Zinc Ointment 30 gm TUBE ONE (00:12)
[2018-01-29] MEDS ORDERED: Naloxone HCl 0.4 mg/ml Vial ONE (00:48)
--- NOTE | 2018-01-31 09:57 | OP ---
DATE OF PROCEDURE: 01/28/2018 PROCEDURE PERFORMED: Esophagogastroduodenoscopy with dilation of esophageal stricture. PREOPERATIVE DIAGNOSIS: Esophageal foreign body. OPERATIVE NOTE: Informed consent was obtained. The patient was sedated with general anesthesia. Th e endoscope was advanced to the second portion of the duodenum and retroflexion was performed in the stomach. The esophagus had a stricture in the distal esophagus that appeared irritated with surround ing esophagitis. She appears to pass the bolus on down. The stricture was dilated to 18 mm with a b alloon dilator. There was an appropriate tear at the dilation site visualized. There was a small hi atal hernia present. The stomach was otherwise normal. The duodenum was normal. IMPRESSION: 1. Stricture in the distal esophagus dilated to 18 mm with a balloon. The food bolus had passed on down. An appropriate tear was visualized at the dilation site. 2. Small hiatal hernia. 3. Otherwise normal esophagogastroduodenoscopy. RECOMMENDATIONS: 1. Pureed diet. 2. Proton pump inhibitor daily.
== END 2018-01-29 01:25 | disposition home or self-care (01) ==
LOC: ERS 19:04 → SDC 01-29 00:11
PROVIDERS: ATTEND Internal Medicine Gastroenterology
PROC: 0D758ZZ Dilation of Esophagus, Via Natural or Artificial Opening Endoscopic (ICD-10-PCS; principal; 2018-01-29)
DX: K22.2 Esophageal obstruction (principal); E78.5 Hyperlipidemia, unspecified; Z79.82 Long term (current) use of aspirin; Z79.899 Other long term (current) drug therapy
CPT/HCPCS: 36415; 80053; 85025; 93005; J2001; J2310; J2704; J3010